=== PATIENT | female | born 1940 | race Caucasian/White ===

== ENCOUNTER 2016-04-11 03:29 | Emergency (ER) | payer MEDICARE, BC ==
--- NOTE | 2016-04-11 03:40 | ED ---
General Adult HPI - General Stated complaint: altered mental Time Seen by Provider: 04/11/16 03:30 Source: RN notes reviewed, old records reviewed - History of Present Illness Initial comments: This is a 75-year-old female here for evaluation of altered mental status. Patient just prior [facility] after prolonged hospitalization secondary to hip fracture and then rehabilitation. Patient is on a blood thinners, no trauma. Patient is combative and noncooperative, history is obtained from EMS and the patient's chart. Patient is unable to give history - Related Data Home Medications Medication Instructions Recorded Confirmed Alendronate Sodium [Fosamax] 70 mg PO Q7D 02/26/16 02/26/16 Fish Oil/Dha/Epa [Fish Oil 1,200 1 cap PO DAILY 02/26/16 02/26/16 mg Fish Oil] Levothyroxine Sodium [Synthroid] 100 mcg PO DAILY 02/26/16 02/26/16 Red Yeast Rice 600 mg PO DAILY 02/26/16 02/26/16 Previous Rx's Medication Instructions Recorded HYDROcodone/APAP 5-325MG [[place] 1 - 2 each PO Q4-6H PRN #90 tab 02/28/16 5-325] Sennosides-Docusate Sodium 1 tab PO BID #60 tablet 02/28/16 [Senokot-S] Warfarin [Coumadin] 2.5 mg PO DAILY #30 tab 02/28/16 Aspirin EC [Ecotrin Low Dose] 81 mg PO DAILY #30 tablet. 02/29/16 Ciprofloxacin HCl [Cipro] 250 mg PO Q12HR #10 tablet 02/29/16 Allergies Allergy/AdvReac Type Severity Reaction Status Date / Time No Known Allergies Allergy Verified 04/11/16 03:42 Review of Systems ROS Statement: Those systems with pertinent positive or pertinent negative responses have been documented in the HPI. ROS Other: All systems not noted in ROS Statement are negative. Past Medical History Past Medical History: Thyroid Disorder Additional Past Medical History / Comment(s): scoliosis History of Any Multi-Drug Resistant Organisms: None Reported Additional Past Surgical History / Comment(s): thyroid surgery Past Psychological History: No Psychological Hx Reported Smoking Status: Former smoker Past Alcohol Use History: None Reported, Rare Past Drug Use History: None Reported - Past Family History Mother Additional Family Medical History / Comment(s): do gehrig's disease Father Family Medical History: Cancer General Exam Limitations: altered mental status, physical limitation General appearance: alert, in distress Head exam: Present: atraumatic, normocephalic, normal inspection Eye exam: Present: normal appearance, PERRL, EOMI. Absent: scleral icterus, conjunctival injection, periorbital swelling ENT exam: Present: normal exam, mucous membranes moist Neck exam: Present: normal inspection. Absent: tenderness, meningismus, lymphadenopathy Respiratory exam: Present: normal lung sounds bilaterally. Absent: respiratory distress, wheezes, rales, rhonchi, stridor Cardiovascular Exam: Present: regular rate, normal rhythm, normal heart sounds. Absent: systolic murmur, diastolic murmur, rubs, gallop, clicks GI/Abdominal exam: Present: soft, normal bowel sounds. Absent: distended, tenderness, guarding, rebound, rigid Extremities exam: Present: normal inspection, full ROM, normal capillary refill. Absent: tenderness, pedal edema, joint swelling, calf tenderness Back exam: Present: normal inspection Neurological exam: Present: alert, oriented X3, CN II-XII intact Psychiatric exam: Present: normal affect, normal mood Skin exam: Present: warm, dry, intact, normal color. Absent: rash Course Vital Signs 04/11/16 04/11/16 03:33 04:30 Temperature 97.6 F Pulse Rate 94 95 Respiratory 18 18 Rate Blood Pressure 175/104 156/98 O2 Sat by Pulse 98 96 Oximetry - Reevaluation(s) Reevaluation #1: 04/11/16 03:40 Medical record from prior is reviewed Reevaluation #2: 04/11/16 05:31 Per patient's , patient up and feeling well for 2-3 days and episodes of episodic headaches and being forgetful. They did stop at family care earlier today and were told to follow-up on Thursday Reevaluation #3: 04/11/16 05:32 Patient is doing better with sedation, able to be sedated for CAT scan EKG Findings - EKG Comments: EKG Findings:: EKG shows normal sinus rhythm rate of 90, SD 16, QRS 80, QTC 459 Medical Decision Making - Medical Decision Making 21 for female here for evaluation of altered mental status, 2-3 days well for mental status forgetfulness yesterday occasional headache and worsening today, patient is not on blood thinners, patient is found to have intracerebral hemorrhage, no midline shift, patient will be transferred to [facility] for surgical evaluation - Lab Data Result diagrams: 04/11/16 04:15 04/11/16 04:15 Lab Results 04/11/16 04/11/16 04/11/16 Range/Units 04:03 04:05 04:15 WBC (3.8-10.6) k/uL RBC (3.80-5.40) m/uL Hgb (11.4-16.0) gm/dL Hct (34.0-46.0) % MCV (80.0-100.0) fL MCH (25.0-35.0) pg MCHC (31.0-37.0) g/dL RDW (11.5-15.5) % Plt Count (150-450) k/uL Neutrophils % % Lymphocytes % % Monocytes % % Eosinophils % % Basophils % % Neutrophils # (1.3-7.7) k/uL Lymphocytes # (1.0-4.8) k/uL Monocytes # (0-1.0) k/uL Eosinophils # (0-0.7) k/uL Basophils # (0-0.2) k/uL PT (9.0-12.0) sec INR (<1.1) APTT (22.0-30.0) sec Sodium (137-145) mmol/L Potassium (3.5-5.1) mmol/L Chloride (98-107) mmol/L Carbon Dioxide (22-30) mmol/L Anion Gap mmol/L BUN (7-17) mg/dL Creatinine (0.52-1.04) mg/dL Est GFR (MDRD) Af Amer (>60 ml/min/1.73 sqM) Est GFR (MDRD) Non-Af (>60 ml/min/1.73 sqM) Glucose (74-99) mg/dL POC Glucose (mg/dL) 107 H (75-99) mg/dL POC Glu Coverage Analyst [place] Calcium (8.4-10.2) mg/dL Phosphorus (2.5-4.5) mg/dL Magnesium (1.6-2.3) mg/dL Total Bilirubin (0.2-1.3) mg/dL AST (14-36) U/L ALT (9-52) U/L Alkaline Phosphatase (38-126) U/L Total Creatine Kinase 68 (30-135) U/L Total Protein (6.3-8.2) g/dL Albumin (3.5-5.0) g/dL Urine Color Yellow Urine Appearance Clear (Clear) Urine pH 7.0 (5.0-8.0) Ur Specific [place] 1.007 (1.001-1.035) Urine Protein Negative (Negative) Urine Glucose (UA) Negative (Negative) Urine Ketones Negative (Negative) Urine Blood Negative (Negative) Urine Nitrate Negative (Negative) Urine Bilirubin Negative (Negative) Urine Urobilinogen <2.0 (<2.0) mg/dL Ur Leukocyte Esterase Negative (Negative) 04/11/16 04/11/16 04/11/16 Range/Units 04:15 04:15 04:15 WBC 12.6 H (3.8-10.6) k/uL RBC 4.62 (3.80-5.40) m/uL Hgb 12.7 (11.4-16.0) gm/dL Hct 39.9 (34.0-46.0) % MCV 86.5 (80.0-100.0) fL MCH 27.4 (25.0-35.0) pg MCHC 31.7 (31.0-37.0) g/dL RDW 15.6 H (11.5-15.5) % Plt Count 267 (150-450) k/uL Neutrophils % 84 % Lymphocytes % 8 % Monocytes % 5 % Eosinophils % 2 % Basophils % 1 % Neutrophils # 10.5 H (1.3-7.7) k/uL Lymphocytes # 1.0 (1.0-4.8) k/uL Monocytes # 0.6 (0-1.0) k/uL Eosinophils # 0.2 (0-0.7) k/uL Basophils # 0.1 (0-0.2) k/uL PT 10.5 (9.0-12.0) sec INR 1.0 (<1.1) APTT 21.1 L (22.0-30.0) sec Sodium 145 (137-145) mmol/L Potassium 4.6 (3.5-5.1) mmol/L Chloride 108 H (98-107) mmol/L Carbon Dioxide 27 (22-30) mmol/L Anion Gap 10 mmol/L BUN 25 H (7-17) mg/dL Creatinine 1.50 H (0.52-1.04) mg/dL Est GFR (MDRD) Af Amer 41 (>60 ml/min/1.73 sqM) Est GFR (MDRD) Non-Af 34 (>60 ml/min/1.73 sqM) Glucose 92 (74-99) mg/dL POC Glucose (mg/dL) (75-99) mg/dL POC Glu Coverage Analyst ID Calcium 9.4 (8.4-10.2) mg/dL Phosphorus 3.6 (2.5-4.5) mg/dL Magnesium 2.0 (1.6-2.3) mg/dL Total Bilirubin 0.4 (0.2-1.3) mg/dL AST 22 (14-36) U/L ALT 28 (9-52) U/L Alkaline Phosphatase 77 (38-126) U/L Total Creatine Kinase (30-135) U/L Total Protein 6.9 (6.3-8.2) g/dL Albumin 3.8 (3.5-5.0) g/dL Urine Color Urine Appearance (Clear) Urine pH (5.0-8.0) Ur Specific [place] (1.001-1.035) Urine Protein (Negative) Urine Glucose (UA) (Negative) Urine Ketones (Negative) Urine Blood (Negative) Urine Nitrate (Negative) Urine Bilirubin (Negative) Urine Urobilinogen (<2.0) mg/dL Ur Leukocyte Esterase (Negative) - Radiology Data Radiology results: report reviewed (CT brain is positive for intracerebral hemorrhage), image reviewed Disposition Clinical Impression: Altered mental status, Hemorrhage of left temporal lobe Disposition: OTHER INSTITUTION NOT DEFINED Condition: Critical Referrals: Macey Banerjee MD [Primary Care Provider] - 1-2 days - Out of Hospital Transfer - Req. Specs Out of Hospital Transfer - Requested Specifics: Other Emergency Center ([facility])
[2016-04-11] MEDS ORDERED: SODIUM CHLORIDE 0.9% 500 ML IV STA (03:41)
[2016-04-11] MEDS ORDERED: SODIUM CHLORIDE 0.9% 1,000 ML IV STA ×2 (03:41→05:46)
[2016-04-11 04:04] LABS: Glucose,Whole Blood 107 mg/dL (75-99)
[2016-04-11 04:18] LABS: Appearance,Urine Clear (Clear); Bilirubin,Urine Negative (Negative); Glucose,Urine (UA) Negative (Negative); Ketones,Urine Negative (Negative); Leukocyte Esterase,Urine Negative (Negative); Nitrite,Urine Negative (Negative); Protein,Urine Negative (Negative); Specific Gravity,Urine 1.007 (1.001-1.035); UA Billing (MACRO vs. MICRO) CHEM; Urobilinogen,Urine <2.0 mg/dL (<2.0)
[2016-04-11 04:27] LABS: Basophils # (A) 0.1 k/uL (0-0.2); Basophils % (A) 1 %; CH 27.1; CHCM 31.5; Eosinophils # (A) 0.2 k/uL (0-0.7); Eosinophils % (A) 2 %; HCT 39.9 % (34.0-46.0); HGB 12.7 gm/dL (11.4-16.0); Luc # (Auto) 0.14; Luc % (Auto) 1; Lymphocytes % (A) 8 %; MCH 27.4 pg (25.0-35.0); MCHC 31.7 g/dL (31.0-37.0); MCV 86.5 fL (80.0-100.0); Mean Platelet Volume 7.1; Monocytes # (A) 0.6 k/uL (0-1.0); Monocytes % (A) 5 %; Neutrophils # (A) 10.5 k/uL (1.3-7.7); Neutrophils % (A) 84 %; RBC 4.62 m/uL (3.80-5.40); RDW 15.6 % (11.5-15.5); WBC 12.6 k/uL (3.8-10.6); WBC (Perox) 13.63
[2016-04-11] MEDS ORDERED: LORazepam 2 MG/ML SYRINGE IV STA (04:28)
[2016-04-11 04:44] LABS: Calcium 9.4 mg/dL (8.4-10.2); Phosphorous 3.6 mg/dL (2.5-4.5); Potassium 4.6 mmol/L (3.5-5.1); Prothrombin Time 10.5 sec (9.0-12.0); Total Bilirubin 0.4 mg/dL (0.2-1.3); Total Protein 6.9 g/dL (6.3-8.2)
[2016-04-11 04:49] LABS: Creatine Kinase 68 U/L (30-135)
[2016-04-11 05:02] LABS: Creatine Kinase MB 1.2 ng/mL (0.0-2.4); Troponin I <0.012 ng/mL (0.000-0.034)
[2016-04-11 05:07] LABS: Partial Thromboplastin Time 21.1 sec (22.0-30.0)
--- NOTE | 2016-04-11 05:17 | CT ---
EXAMINATION TYPE: CT brain wo con DATE OF EXAM: 04/11/2016 5:12 AM COMPARISON: NONE HISTORY: AMS CT DLP: 1133.30 mGycm Automated exposure control for dose reduction was used. FINDINGS: There is diffuse cerebral cortical atrophy. There is a 3 x 3 cm area of high attenuation in the right temporal lobe consistent with acute hemorrhage. There is no mass effect nor midline shift. There is enlargement of the ventricles. 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 Acute right temporal lobe parenchymal hemorrhage.
--- NOTE | 2016-04-11 05:25 | XR ---
EXAMINATION TYPE: XR chest 1V DATE OF EXAM: 04/11/2016 4:34 AM COMPARISON: 02/25/2016 HISTORY: Altered mental status. Weakness. TECHNIQUE: Single frontal view of the chest is obtained. FINDINGS: There is no heart failure nor confluent pneumonic infiltrate. There are no hilar masses. T horacic aorta is atheromatous. There are chest leads. Costophrenic angles are clear. IMPRESSION: No active cardiopulmonary disease. Normal heart. Atheromatous aorta. No change.
[2016-04-11] MEDS ORDERED: LABETALOL SYRINGE 5 MG/ML IVP STA (05:34)
[2016-04-11 05:50] VITALS: RESP 16
[2016-04-11 06:01] VITALS: BP 155/84; PULSE 64; TEMP 98
== END 2016-04-11 06:03 | disposition short-term general hospital (02) ==
LOC: EC 03:29 → SUPCPDRO 03:29 → EC 06:03
DX: I61.9 Nontraumatic intracerebral hemorrhage, unspecified (principal); G31.89 Other specified degenerative diseases of nervous system; E07.9 Disorder of thyroid, unspecified; Z79.899 Other long term (current) drug therapy; Z79.82 Long term (current) use of aspirin; Z79.01 Long term (current) use of anticoagulants; Z87.891 Personal history of nicotine dependence
CPT/HCPCS: 99285 ×2; 96374 ×2; 96375 ×2; 96361 ×2; 36415; 93005; 80053; 82550; 82553; 83735; 84100; 84484; 85025; 85610; 85730; 81003; 87086; 71010; 70450; J2060

== ENCOUNTER 2016-04-16 22:03 | Emergency (ER) | payer MEDICARE, BC ==
[2016-04-16 22:14] VITALS: RESP 18
[2016-04-16] MEDS ORDERED: LORazepam 2 MG/ML SYRINGE IM STA (22:15)
[2016-04-16] MEDS ORDERED: ZIPRASIDONE 20 MG VIAL IM STA (22:15)
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
[2016-04-16 22:37] LABS: Basophils # (A) 0.1 k/uL (0-0.2); Basophils % (A) 0 %; CH 27.3; CHCM 31.8; Eosinophils # (A) 0.3 k/uL (0-0.7); Eosinophils % (A) 3 %; HCT 40.6 % (34.0-46.0); HGB 12.6 gm/dL (11.4-16.0); Luc # (Auto) 0.22; Luc % (Auto) 2; Lymphocytes # (A) 1.2 k/uL (1.0-4.8); Lymphocytes % (A) 10 %; MCH 26.9 pg (25.0-35.0); MCHC 31.2 g/dL (31.0-37.0); MCV 86.2 fL (80.0-100.0); Mean Platelet Volume 7.2; Monocytes # (A) 0.6 k/uL (0-1.0); Monocytes % (A) 5 %; Neutrophils # (A) 10.3 k/uL (1.3-7.7); Neutrophils % (A) 81 %; RBC 4.71 m/uL (3.80-5.40); RDW 15.4 % (11.5-15.5); WBC 12.7 k/uL (3.8-10.6); WBC (Perox) 12.87
[2016-04-16 22:44] LABS: Calcium 9.7 mg/dL (8.4-10.2); Potassium 4.6 mmol/L (3.5-5.1); Total Bilirubin 0.4 mg/dL (0.2-1.3); Total Protein 7.3 g/dL (6.3-8.2)
[2016-04-16] MEDS ORDERED: SODIUM CHLORIDE 0.9% 500 ML IV STA (23:18)
[2016-04-17 00:06] LABS: Appearance,Urine Clear (Clear); Bilirubin,Urine Negative (Negative); Glucose,Urine (UA) Negative (Negative); Ketones,Urine Negative (Negative); Leukocyte Esterase,Urine Negative (Negative); Nitrite,Urine Negative (Negative); PH, Urine 6.5 (5.0-8.0); Protein,Urine Negative (Negative); Specific Gravity,Urine 1.009 (1.001-1.035); UA Billing (MACRO vs. MICRO) CHEM; Urobilinogen,Urine <2.0 mg/dL (<2.0)
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
--- NOTE | 2016-04-17 00:31 | XR ---
EXAMINATION TYPE: XR chest 1V portable DATE OF EXAM: 04/17/2016 12:16 AM COMPARISON: 04/11/2016 HISTORY: History of fall and pain TECHNIQUE: Single frontal view of the chest is obtained. FINDINGS: Chronic lung changes are suggested bilaterally. There is no focal air space opacity, pleural effusion, or pneumothorax seen. Borderline enlarged hear t is noted. Atherosclerotic calcification is noted in the aortic arch. The osseous structures are i ntact. IMPRESSION: 1. Chronic lung changes. 2. No significant active lung infiltrates. 3. No significant change.
[2016-04-17 01:55] VITALS: BP 185/75; PULSE 80; TEMP 98
== END 2016-04-17 01:55 | disposition home or self-care (01) ==
LOC: EC 22:03
DX: E86.0 Dehydration (principal); S80.212A Abrasion, left knee, initial encounter; S80.211A Abrasion, right knee, initial encounter; W06.XXXA Fall from bed, initial encounter; Y92.122 Bedroom in nursing home as the place of occurrence of the external cause; R41.82 Altered mental status, unspecified; R45.1 Restlessness and agitation; Z86.79 Personal history of other diseases of the circulatory system; E07.9 Disorder of thyroid, unspecified; Z87.891 Personal history of nicotine dependence; Z79.899 Other long term (current) drug therapy; Z79.01 Long term (current) use of anticoagulants; Z79.82 Long term (current) use of aspirin
CPT/HCPCS: 36415; 93005; 80053; 82140; 82550; 82553; 83735; 85025; 81003; 71010; 72125; 70450; 99285; 96372; 96361; 96360; J2060; J3486

== ENCOUNTER 2016-04-23 23:09 | Inpatient (IN) | payer MEDICARE, BC ==
[2016-04-23 23:41] LABS: Basophils # (A) 0.1 k/uL (0-0.2); Basophils % (A) 1 %; CH 27.8; CHCM 32.4; Eosinophils # (A) 0.5 k/uL (0-0.7); Eosinophils % (A) 4 %; HCT 33.8 % (34.0-46.0); HGB 10.6 gm/dL (11.4-16.0); Luc # (Auto) 0.19; Luc % (Auto) 2; Lymphocytes # (A) 1.6 k/uL (1.0-4.8); Lymphocytes % (A) 14 %; MCHC 31.4 g/dL (31.0-37.0); MCV 86.1 fL (80.0-100.0); Mean Platelet Volume 7.8; Monocytes # (A) 0.7 k/uL (0-1.0); Monocytes % (A) 6 %; Neutrophils # (A) 8.2 k/uL (1.3-7.7); Neutrophils % (A) 73 %; RBC 3.92 m/uL (3.80-5.40); RDW 14.9 % (11.5-15.5); WBC 11.2 k/uL (3.8-10.6); WBC (Perox) 11.51
[2016-04-23 23:50] LABS: Partial Thromboplastin Time 24.2 sec (22.0-30.0); Prothrombin Time 10.5 sec (9.0-12.0)
[2016-04-23 23:51] LABS: Calcium 8.9 mg/dL (8.4-10.2); Potassium 4.3 mmol/L (3.5-5.1); Total Bilirubin 0.5 mg/dL (0.2-1.3); Total Protein 6.5 g/dL (6.3-8.2)
--- NOTE | 2016-04-24 00:09 | ED ---
Fall HPI - General Chief Complaint: Fall Stated Complaint: Fall Time Seen by Provider: 04/23/16 23:12 Source: patient Mode of arrival: EMS - History of Present Illness Initial Comments: This is a 75-year-old female who presents for medical on for a fall. The patient has a history of multiple falls in the past. She has been emergency department multiple times for evaluation of these falls. Tonight she was sitting in her wheelchair and wheelchair flipped backwards and she hit her head on a metal heater. She was awake and alert afterwards and the nurse was evaluating her and keep an eye on her. Her mental status did not change. She was little bit agitated and they gave her 0.5 Ativan 2. The family member showed up and stated that he wanted her evaluated in the ER from her fall. The patient currently denies any pain. She is currently comfortable. No complaints with the patient. - Related Data Home Medications Medication Instructions Recorded Confirmed Acetaminophen [Tylenol] 650 mg PO Q4H PRN 04/23/16 04/23/16 Atorvastatin [Lipitor] 40 mg PO HS 04/23/16 04/23/16 Cephalexin [Keflex] 500 mg PO Q6HR 04/23/16 04/23/16 Divalproex Sodium [Depakote] 125 mg PO BID@0800,1600 04/23/16 04/23/16 HYDROcodone/APAP 5-325MG [[place] 1 tab PO Q4HR PRN 04/23/16 04/23/16 5-325] LORazepam [Ativan] 0.5 mg PO Q4H PRN 04/23/16 04/23/16 Levothyroxine Sodium [Synthroid] 75 mcg PO HS 04/23/16 04/23/16 Omeprazole 20 mg PO HS 04/23/16 04/23/16 QUEtiapine [SEROquel] 75 mg PO HS 04/23/16 04/23/16 Sennosides [Senokot] 8.6 mg PO BID 04/23/16 04/23/16 levETIRAcetam 1,000 mg PO Q12HR 04/23/16 04/23/16 Allergies Allergy/AdvReac Type Severity Reaction Status Date / Time No Known Allergies Allergy Verified 04/23/16 23:31 Review of Systems ROS Statement: Those systems with pertinent positive or pertinent negative responses have been documented in the HPI. ROS Other: All systems not noted in ROS Statement are negative. Past Medical History Past Medical History: Thyroid Disorder Additional Past Medical History / Comment(s): scoliosis, alterted mental status History of Any Multi-Drug Resistant Organisms: None Reported Additional Past Surgical History / Comment(s): thyroid surgery Past Psychological History: No Psychological Hx Reported Smoking Status: Former smoker Past Alcohol Use History: None Reported, Rare Past Drug Use History: None Reported - Past Family History Mother Additional Family Medical History / Comment(s): do gehrig's disease Father Family Medical History: Cancer General Exam - General Exam Comments Initial Comments: Constitutional: Awake alert Appears comfortable Head: Normocephalic atraumatic, no hematoma or abrasion seen Eyes: no conjunctival injection No scleral icterus EOMI, pupils are 3 mm reactive bilaterally Neck: No JVD Supple, no midline tenderness Heart: Regular rate rhythm normal S1-S2 no murmurs Lungs: Clear to auscultation bilaterally No wheezing No rales Abdomen: Soft nondistended nontender Extremities: Non edematous DP pulses intact Radial pulses intact, there is no tenderness to palpation along bilateral lower extremities, negative pain with log rolling, pelvis is stable, there are multiple abrasions to the patient's lower extremities Neuro: Patient is awake and alert and oriented 1-2 No focal neurologic deficits Psych: Appropriate mood and affect Course Vital Signs 04/23/16 04/24/16 23:16 00:15 Temperature 97.3 F L 97.7 F Pulse Rate 77 74 Respiratory 20 18 Rate Blood Pressure 169/108 186/81 O2 Sat by Pulse 93 L 97 Oximetry - Reevaluation(s) Reevaluation #1: 04/24/16 00:15 EKG showing normal sinus rhythm with a rate of 74. No ST segment changes or T- wave inversions. QTC is 463. Other intervals are normal. No ectopy. Medical Decision Making - Medical Decision Making Is a 75-year-old female presents emergency department [facility] Family is adamant that they do not want to take her back to metal lodged because she is keeps falling there and having to return emergency Department. Imaging was reviewed and does show persistent right-sided temporal hemorrhage that is improving from previous. No other acute injuries are noted. On the place her in observation for placement tomorrow and monitoring overnight. Dr. Kenney except admission. - Lab Data Result diagrams: 04/23/16 23:30 04/23/16 23:30 Lab Results 04/23/16 04/23/16 04/23/16 Range/Units 23:30 23:30 23:30 WBC 11.2 H (3.8-10.6) k/uL RBC 3.92 (3.80-5.40) m/uL Hgb 10.6 L (11.4-16.0) gm/dL Hct 33.8 L (34.0-46.0) % MCV 86.1 (80.0-100.0) fL MCH 27.0 (25.0-35.0) pg MCHC 31.4 (31.0-37.0) g/dL RDW 14.9 (11.5-15.5) % Plt Count 205 (150-450) k/uL Neutrophils % 73 % Lymphocytes % 14 % Monocytes % 6 % Eosinophils % 4 % Basophils % 1 % Neutrophils # 8.2 H (1.3-7.7) k/uL Lymphocytes # 1.6 (1.0-4.8) k/uL Monocytes # 0.7 (0-1.0) k/uL Eosinophils # 0.5 (0-0.7) k/uL Basophils # 0.1 (0-0.2) k/uL PT 10.5 (9.0-12.0) sec INR 1.0 (<1.1) APTT 24.2 (22.0-30.0) sec Sodium 137 (137-145) mmol/L Potassium 4.3 (3.5-5.1) mmol/L Chloride 100 (98-107) mmol/L Carbon Dioxide 28 (22-30) mmol/L Anion Gap 9 mmol/L BUN 16 (7-17) mg/dL Creatinine 1.09 H (0.52-1.04) mg/dL Est GFR (MDRD) Af Amer 59 (>60 ml/min/1.73 sqM) Est GFR (MDRD) Non-Af 49 (>60 ml/min/1.73 sqM) Glucose 101 H (74-99) mg/dL Calcium 8.9 (8.4-10.2) mg/dL Total Bilirubin 0.5 (0.2-1.3) mg/dL AST 27 (14-36) U/L ALT 31 (9-52) U/L Alkaline Phosphatase 81 (38-126) U/L Total Protein 6.5 (6.3-8.2) g/dL Albumin 3.3 L (3.5-5.0) g/dL Disposition Clinical Impression: Multiple falls, Intracranial hemorrhage Disposition: ADMITTED IP TO THIS [facility] Condition: Stable
--- NOTE | 2016-04-24 00:43 | XR ---
EXAM: XR Chest, 1 View. CLINICAL HISTORY: Reason: Pain TECHNIQUE: Frontal view of the chest. COMPARISON: 04/11/16. FINDINGS: Lungs: Low lung volumes accentuate pulmonary markings. Slight increased retrocardiac opacity may reflect worsening infiltrate or atelectasis. Prominent lung markings likely due to low lung volume. Pleural space: Unremarkable. No pneumothorax. Heart: Cardiovascular silhouette is mildly enlarged and accentuated by low lung volume, unchanged. Mediastinum: Unremarkable. Bones/joints: Degenerative changes in the thoracic spine. Vasculature: Tortuous calcified thoracic aorta is again seen. IMPRESSION: Low lung volume. Worsening left basilar infiltrate versus atelectasis.
--- NOTE | 2016-04-24 00:45 | XR ---
EXAM: XR Pelvis, 1 or 2 Views. CLINICAL HISTORY: Reason: Pain TECHNIQUE: Frontal view of the pelvis. COMPARISON: No relevant prior studies available. FINDINGS: Bones/joints: Left hip hemiarthroplasty is noted. The entire prosthesis is not included on this frontal view. No dislocation on this single frontal view. Diffuse demineralization of the bones. Degenerative changes in the visualized lumbar spine with scoliosis. No acute fracture. Soft tissues: Calcifications in the pelvis likely phleboliths. Gastrointestinal tract: Moderate retained stool in the visualized large bowel loops. IMPRESSION: No definite acute bony abnormality on this single frontal view. Status post left hip arthroplasty. Osteopenia.
[2016-04-24] MEDS ORDERED: NALOXONE 0.4 MG/ML 1 ML VIAL IV PRN (01:00)
--- NOTE | 2016-04-24 01:09 | CT ---
EXAM: CT Head Without Intravenous Contrast. CLINICAL HISTORY: Reason: Pain TECHNIQUE: Axial computed tomography images of the head/brain without intravenous contrast. CTDI is 60.3 mGy and DLP is 1180 MGy-cm COMPARISON: 04/16/16 FINDINGS: Brain: Interval decrease in hematoma in the right temporal lobe. Current measurement is approximately 2 x 1.3 cm. previous measurement was approximately 3 cm in the greatest diameter. There is surrounding edema and mass effect. Extensive periventricular low densities are identified. No significant white matter disease. Ventricles: No midline shift or hydrocephalus is seen. There is diffuse atrophy with compensatory dilatation of the lateral ventricles. Prominence of the lateral ventricles as previously noted. Possible mild communicating hydrocephalus. Bones/joints: Unremarkable. No acute fracture. Soft tissues: Unremarkable. Sinuses: Unremarkable as visualized. No acute sinusitis. Mastoid air cells: Unremarkable as visualized. No mastoid effusion. Other findings: Previously seen small left frontal hematoma, no longer visualized. IMPRESSION: Interval decrease in right temporal hemorrhage/hematoma with surrounding edema. Diffuse atrophy and extensive small vessel ischemic change. EXAM: CT Cervical Spine Without Intravenous Contrast. CLINICAL HISTORY: Reason: Pain TECHNIQUE: Axial computed tomography images of the cervical spine without intravenous contrast. CTDI is 13.5 mGy and DLP is 275 mGy-cm COMPARISON: 04/16/16 FINDINGS: Vertebrae: There is normal alignment of the cervical spine. Vertebral body heights are maintained. Degenerative endplate changes are seen at multiple levels, most pronounced at C5-6 and C6-7. Again noted is slight posterior displacement of C5 with respect to C6. No acute fracture. Soft tissues: Unremarkable. Vasculature: Calcified carotid arteries again noted. Lung apices: Biapical scarring and emphysematous changes. DISCS/SPINAL CANAL/NEURAL FORAMINA: C2-C3: Mild disc osteophytic bulge. No stenosis. C3-C4: Mild central disc osteophytic bulge. No stenosis. C4-C5: Mild to moderate discussed if it bulge. No stenosis. C5-C6: Narrowing of the disc space. Moderate discussed if it bulge extending into the neural foramina bilaterally, more pronounced towards the right. Facet arthropathy identified. These findings contribute to mild spinal stenosis. Moderate to severe bilateral neural foraminal narrowing. C6-C7: Moderate disc osteophytic bulge, more pronounced towards the right. Mild spinal stenosis is suspected. Moderate to severe bilateral neural foraminal narrowing. C7-T1: no significant disc bulge. No stenosis. IMPRESSION: Multilevel degenerative disc disease as described. No compression deformity. Diffuse osteopenia.
[2016-04-24] MEDS: CEPHALEXIN 500 MG CAP PO SCH ×4 (06:14→23:49)
[2016-04-24 06:54] LABS: Appearance,Urine Clear (Clear); Bilirubin,Urine Negative (Negative); Glucose,Urine (UA) Negative (Negative); Ketones,Urine Negative (Negative); Leukocyte Esterase,Urine Negative (Negative); Nitrite,Urine Negative (Negative); PH, Urine 7.5 (5.0-8.0); Protein,Urine Negative (Negative); Specific Gravity,Urine 1.006 (1.001-1.035); UA Billing (MACRO vs. MICRO) CHEM; Urobilinogen,Urine <2.0 mg/dL (<2.0)
[2016-04-24] MEDS: levETIRAcetam 500 MG TAB PO SCH ×2 (07:47→23:28)
[2016-04-24] MEDS: DIVALPROEX SPRINKLE 125 MG CAP.SPRINK PO SCH ×3 (07:48→18:04)
[2016-04-24] MEDS: LORazepam 2 MG/ML SYRINGE IV PRN ×2 (08:59→15:28)
[2016-04-24] MEDS ORDERED: ACETAMINOPHEN TAB 325 MG TAB PO PRN (12:24)
--- NOTE | 2016-04-24 12:42 | P.HPIM ---
History of Present Illness H&P Date: 04/24/16 Chief Complaint: Fall This is a 75-year-old female, patient of Dr. Banerjee. She has a known past medical history of hypothyroidism, chronic kidney disease and intracranial brain bleed. Patient has a history of multiple falls in the past. She was transferred earlier in April [facility] for intracranial brain bleed. She had currently been residing at [facility] for rehabilitation. Please note that I'm unable to obtain history from patient. History was obtained from nursing staff and chart. It appears the patient was sitting in her wheelchair in the wheelchair flipped backwards she had her head on the metal heater. She was awake and alert afterwards and the nurse evaluating her and it had reported that there is no change in her mental status. However she was agitated IV did give her some Ativan. Family member showed up and wanted her to be evaluated in the emergency room for her fall. Therefore patient was brought into the emergency room. She's been admitted to the observation floor. Patient did receive Ativan this morning she was agitated trying to crawl out of bed and is very confused. Upon my examination patient is unable to answer questions she is awake. She is lying in bed side only. She is able to follow a few simple commands. Review of Systems Unable to obtain complete review of systems. Patient not answering questions. Past Medical History Past Medical History: Dementia, Thyroid Disorder Additional Past Medical History / Comment(s): scoliosis, alterted mental status , multiple falls with injury, hemorrhage right temporal lobe History of Any Multi-Drug Resistant Organisms: None Reported Past Surgical History: Orthopedic Surgery Additional Past Surgical History / Comment(s): thyroid surgery, closed left hip [id number] Past Anesthesia/Blood Transfusion Reactions: No Reported Reaction Past Psychological History: Unable to Obtain Smoking Status: Former smoker Past Alcohol Use History: None Reported, Rare Past Drug Use History: None Reported - Past Family History Mother Family Medical History: AFIB Additional Family Medical History / Comment(s): do gehrig's disease Father Family Medical History: Cancer Medications and Allergies Home Medications Medication Instructions Recorded Confirmed Type Acetaminophen [Tylenol] 650 mg PO Q4H PRN 04/23/16 04/24/16 History Atorvastatin [Lipitor] 40 mg PO HS 04/23/16 04/24/16 History Cephalexin [Keflex] 500 mg PO Q6HR 04/23/16 04/24/16 History Divalproex Sodium [Depakote] 125 mg PO BID@0800,1600 04/23/16 04/24/16 History HYDROcodone/APAP 5-325MG [[place] 1 tab PO Q4HR PRN 04/23/16 04/24/16 History 5-325] LORazepam [Ativan] 0.5 mg PO Q4H PRN 04/23/16 04/24/16 History Levothyroxine Sodium [Synthroid] 75 mcg PO HS 04/23/16 04/24/16 History Omeprazole 20 mg PO HS 04/23/16 04/24/16 History QUEtiapine [SEROquel] 75 mg PO HS 04/23/16 04/24/16 History Sennosides [Senokot] 8.6 mg PO BID 04/23/16 04/24/16 History levETIRAcetam 1,000 mg PO Q12HR 04/23/16 04/24/16 History Allergies Allergy/AdvReac Type Severity Reaction Status Date / Time No Known Allergies Allergy Verified 04/24/16 02:11 Physical Exam Vitals: Vital Signs Temp Pulse Pulse Resp BP BP Pulse Ox 04/24/16 07:33 97.4 F L 74 18 145/87 94 L 04/24/16 06:50 76 18 04/24/16 04:00 97.9 F 76 18 172/96 96 04/24/16 02:49 18 04/24/16 01:27 97.5 F L 71 18 153/86 95 Intake and Output 04/23/16 04/24/16 04/24/16 22:59 06:59 14:59 Intake Total 50 Output Total 300 Balance -250 Intake: Oral 50 Output: Urine 300 Other: Voiding Method Diaper Toilet Diaper Incontinent # Voids 1 Weight 51 kg Head normocephalic Neck supple Lungs diminished bilaterally. No wheezing or crackles. Heart regular rate and rhythm S1-S2, no rub or gallop Abdomen is soft nontender nondistended positive bowel sounds no hepatosplenomegaly Extremities no edema Neuro patient is awake. Not answering questions. She just received Ativan. However she is able to follow simple commands. Hand planning management it specialist is equal bilaterally. Lower extremity strength equal bilaterally but weak. Probably about a 3 out of 5. Skin: Patient has multiple scabbing and lacerations over her legs and arms. Left elbow swollen red and warm to touch. With possibly a pressure ulceration no evidence of drainage. Results CBC & Chem 7: 04/23/16 23:30 04/23/16 23:30 Labs: Microbiology - Last 24 Hours (Table) 04/24/16 06:30 Urine Culture - Preliminary Urine,Clean Catch Thrombosis Risk Factor Assmnt - Choose All That Apply Each Risk Factor Represents 2 Points: Age 61-74 years, Patient confined to bed Thrombosis Risk Factor Assessment Total Risk Factor Score: 4 Thrombosis Risk Factor Assessment Level: Moderate Risk Assessment and Plan Plan: 1. Multiple falls: With computed tomography scan of the brain showing interval decrease in the right temporal hemorrhage/hematoma with surrounding edema. Also diffuse atrophy and extensive small vessel ischemic change. She had a computed tomography scan of the cervical spine multilevel degenerative disc disease no further compression deformity. Consult physical therapy. Continue with pain medications. Urinalysis negative. Chest x-ray does show worsening left infiltrate versus atelectasis. Patient has not been coughing. Incentive spirometer ordered. 2. Left elbow swelling with stage II ulceration and possible bursitis. Check left elbow x-ray. Continue Keflex 3. Multiple leg and arm lacerations with scabbing. Continue with Keflex. 4. History of right temporal hemorrhage earlier in April requiring a transfer to [facility]. Patient was also started on seizure medications for prevention of seizures. Per family there have been no active seizures. 5. Hypothyroidism resume Synthroid 6. Leukocytosis: Repeat labs in a.m. Possibly related to atelectasis as well as her multiple skin wounds 7. Altered mental status changes: Exact etiology unclear. Possibly related to her fall. Continue to monitor. Continue Ativan as needed for agitation. Continue neuro checks GI prophylaxis Pepcid and DVT prophylaxis SCDs Time with Patient: Greater than 30 (Greater than 50% of the total time spent in counseling and coordination of care.I performed an examination of the patient and discussed their management with the physician C Iron Worker. I have reviewed the Physician C Iron Worker's notes and agree with the documented findings and plan of care)
--- NOTE | 2016-04-24 13:12 | XR ---
EXAMINATION TYPE: XR elbow complete LT DATE OF EXAM: 04/24/2016 1:06 PM CLINICAL HISTORY: Left elbow pain after injury TECHNIQUE: Frontal, lateral and oblique images of the left elbow are obtained. COMPARISON: None FINDINGS: There is no acute fracture/dislocation evident in the left elbow. No abnormal fat pad sig ns are seen. There is spurring from the medial epicondyle of the distal humerus. Well-corticated frag mentation from lateral epicondyles could reflect fractured osteophyte or product of remote trauma. Th ere is mild to moderate soft tissue swelling over the olecranon with some lucency suggesting lacerati on.. Clinical correlation advised. IMPRESSION: There is no acute fracture or dislocation in the left elbow. Other findings as noted abo ve.
[2016-04-24 14:25] VITALS: BMI 21.2
[2016-04-24] MEDS ORDERED: DEXAMETHASONE SOD PHOSPHATE 10 MG/ML 1 ML VIAL IV STA (15:46)
--- NOTE | 2016-04-24 16:26 | P.CNNES ---
History of Present Illness Consult date: 04/24/16 Requesting physician: Kay Kenney Reason for Consult: Mental Status changes History of Present Illness: Patient is a 75-year-old female who is being evaluated on 04/24/2016 by the neurology service per the request of Dr. Kenney for altered mental status. Patient has a past medical history of chronic kidney disease, hypothyroidism, and recent intracranial brain bleed. Patient was fully functional and care of herself prior to [place]. According to family at [place] time she had fallen and injured her hip and underwent hip arthroplasty and was transferred to rehab following. Patient had multiple falls in rehab including a recent fall which resulted in a right temporal hematoma. Patient was placed on Keppra 1000 mg twice a day and Depakote 125 mg twice a day for prophylactic seizure precautions. History is obtained from nursing staff and chart. Due to multiple falls, family requested patient be brought to the emergency room for further evaluation. Computed tomography scan upon admission did show interval decrease in the right temporal hemorrhage/ hematoma with surrounding edema and mass effect. No midline shift or hydrocephalus is seen. Labs on admission include hemoglobin 10.6, hematocrit 33.8, sodium 137, potassium 4.3. UA is negative and urine culture is pending. Due to patient's history of multiple falls, she does have multiple abrasions including left elbow stage II ulceration. Patient has been placed on Keflex for this. At the time of my evaluation, patient is resting comfortably in bed and appears to be in no acute distress. Upon awaking patient for my exam, patient became very agitated and combative. Review of Systems REVIEW OF SYSTEMS: Otherwise unremarkable and noncontributory. Past Medical History Past Medical History: Dementia, Thyroid Disorder Additional Past Medical History / Comment(s): scoliosis, alterted mental status , multiple falls with injury, hemorrhage right temporal lobe History of Any Multi-Drug Resistant Organisms: None Reported Past Surgical History: Orthopedic Surgery Additional Past Surgical History / Comment(s): thyroid surgery, closed left hip [id number] Past Anesthesia/Blood Transfusion Reactions: No Reported Reaction Past Psychological History: Unable to Obtain Smoking Status: Former smoker Past Alcohol Use History: None Reported, Rare Past Drug Use History: None Reported - Past Family History Mother Family Medical History: AFIB Additional Family Medical History / Comment(s): do gehrig's disease Father Family Medical History: Cancer Medications and Allergies Home Medications Medication Instructions Recorded Confirmed Type Acetaminophen [Tylenol] 650 mg PO Q4H PRN 04/23/16 04/24/16 History Atorvastatin [Lipitor] 40 mg PO HS 04/23/16 04/24/16 History Cephalexin [Keflex] 500 mg PO Q6HR 04/23/16 04/24/16 History Divalproex Sodium [Depakote] 125 mg PO BID@0800,1600 04/23/16 04/24/16 History HYDROcodone/APAP 5-325MG [[place] 1 tab PO Q4HR PRN 04/23/16 04/24/16 History 5-325] LORazepam [Ativan] 0.5 mg PO Q4H PRN 04/23/16 04/24/16 History Levothyroxine Sodium [Synthroid] 75 mcg PO HS 04/23/16 04/24/16 History Omeprazole 20 mg PO HS 04/23/16 04/24/16 History QUEtiapine [SEROquel] 75 mg PO HS 04/23/16 04/24/16 History Sennosides [Senokot] 8.6 mg PO BID 04/23/16 04/24/16 History levETIRAcetam 1,000 mg PO Q12HR 04/23/16 04/24/16 History Allergies Allergy/AdvReac Type Severity Reaction Status Date / Time No Known Allergies Allergy Verified 04/24/16 02:11 Physical Examination - Vital Signs Vital Signs: Vital Signs Temp Pulse Pulse Resp BP BP Pulse Ox 04/24/16 07:33 97.4 F L 74 18 145/87 94 L 04/24/16 06:50 76 18 04/24/16 04:00 97.9 F 76 18 172/96 96 04/24/16 02:49 18 04/24/16 01:27 97.5 F L 71 18 153/86 95 Intake and Output 04/24/16 04/24/16 04/24/16 06:59 14:59 22:59 Intake Total 50 Output Total 300 Balance -250 Intake: Oral 50 Output: Urine 300 Other: Voiding Method Diaper Diaper Incontinent # Voids 1 Weight 51 kg 51 kg Patient Weight 04/25/16 06:59 Weight 51 kg PHYSICAL EXAM: GENERAL APPEARANCE: Patient is a well-developed, female who appears to be agitated and combative area did. HEENT: Normocephalic, atraumatic, no facial asymmetry is seen. Neck is supple with no masses felt. CARDIOVASCULAR: Regular rate and rhythm. ABDOMEN: Nontender, nondistended. EXTREMITIES: Show no edema or clubbing. NEUROLOGICAL EXAM: Patient awakens easily to name. Patient does not follow commands. Patient is very agitated and combative. She moves all extremities. No lateralizing weakness is noted. No obvious facial asymmetry is seen. Strength and sensory exam were unable to be obtained due to mental status. Results - Laboratory Findings CBC and BMP: 04/23/16 23:30 04/23/16 23:30 Assessment and Plan (1) Intracranial hemorrhage Status: Acute (2) Multiple falls Status: Acute (3) Abrasions of multiple sites Status: Acute (4) Altered mental status Status: Acute Plan: Recommendation: Patient's altered mental status is most likely multifactorial including medication related due to Depakote and also result of mass effect from prior left temporal hematoma. I will wean her off the Depakote slowly. I will continue Keppra for now. Due to mass effect seen on the computed tomography scan of the brain, I will start her on IV Decadron to reduce the swelling. Due to patient's confusion, safety precautions need to be in place. Continue neurological checks. I will continue to follow with you. Further recommendations to follow. Thank you for allowing me to participate in the care of your patient. Feel free to call me with any questions or concerns. I performed an examination of the patient and discussed the management with the GENERATION ENGINEER. I have reviewed the GENERATION ENGINEER notes and agree with the findings and plan of care.
[2016-04-24] MEDS ORDERED: LEVOTHYROXINE 75 MCG TAB PO SCH (21:00)
[2016-04-24] MEDS ORDERED: QUEtiapine 25 MG TAB PO SCH (21:00)
[2016-04-24] MEDS: PANTOPRAZOLE 40 MG TABLET PO SCH (22:55)
[2016-04-24] MEDS: ATORVASTATIN 40 MG TAB PO SCH (22:55)
[2016-04-24] MEDS: SENNOSIDES 8.6 MG TAB PO SCH (22:55)
[2016-04-25] MEDS: CEPHALEXIN 500 MG CAP PO SCH ×3 (05:21→17:08)
[2016-04-25] MEDS: LORazepam 2 MG/ML SYRINGE IV PRN ×3 (07:37→21:53)
[2016-04-25] MEDS ORDERED: FAMOTIDINE 20 MG TAB PO SCH (09:00)
[2016-04-25] MEDS: HYDROcodone/APAP 5-325MG 1 EACH TAB PO PRN (09:37)
[2016-04-25] MEDS: levETIRAcetam 500 MG TAB PO SCH ×2 (09:38→21:40)
[2016-04-25] MEDS: SENNOSIDES 8.6 MG TAB PO SCH ×2 (09:39→21:39)
[2016-04-25 09:49] LABS: Basophils % (A) 0 %; CH 27.1; CHCM 31.7; Eosinophils % (A) 0 %; HCT 39.3 % (34.0-46.0); HDW 2.26; HGB 12.1 gm/dL (11.4-16.0); Luc # (Auto) 0.13; Luc % (Auto) 1; Lymphocytes # (A) 1.2 k/uL (1.0-4.8); Lymphocytes % (A) 9 %; MCH 26.4 pg (25.0-35.0); MCHC 30.7 g/dL (31.0-37.0); MCV 85.9 fL (80.0-100.0); Mean Platelet Volume 7.1; Monocytes # (A) 0.6 k/uL (0-1.0); Monocytes % (A) 5 %; Neutrophils # (A) 11.5 k/uL (1.3-7.7); Neutrophils % (A) 85 %; RBC 4.58 m/uL (3.80-5.40); RDW 14.7 % (11.5-15.5); WBC 13.5 k/uL (3.8-10.6)
[2016-04-25] MEDS ORDERED: LORazepam 2 MG/ML SYRINGE IV PRN (10:02)
[2016-04-25 10:09] LABS: ALT 28 U/L (9-52); AST 26 U/L (14-36); Alkaline Phosphatase 95 U/L (38-126); Anion Gap 11 mmol/L; Blood Urea Nitrogen 16 mg/dL (7-17); Calcium 9.7 mg/dL (8.4-10.2); Carbon Dioxide 27 mmol/L (22-30); Chloride 103 mmol/L (98-107); Glucose 94 mg/dL (74-99); Non-African American GFR(MDRD) 59 (>60 ml/min/1.73 sqM); Potassium 4.7 mmol/L (3.5-5.1); Sodium 141 mmol/L (137-145); Total Bilirubin 0.5 mg/dL (0.2-1.3); Total Protein 7.1 g/dL (6.3-8.2)
[2016-04-25] MEDS: DEXAMETHASONE SOD PHOSPHATE 4 MG/ML 1 ML VIAL IV SCH ×2 (11:16→17:09)
--- NOTE | 2016-04-25 12:49 | P.PN ---
Subjective 75-year-old female presented with fall and mental status changes. She's been seen by neurology. She had a computed tomography scan of the brain showed interval decrease in the right temporal hemorrhage/hematoma with surrounding edema. They have added dexamethasone. Patient is still very confused. She's been climbing out of her bed and trying to crawl out of bed. She has required IV Ativan. Objective - Vital Signs Vital signs: Vital Signs Temp 97.8 F 04/25/16 07:00 Pulse 99 04/25/16 08:00 Resp 18 04/25/16 08:00 BP 148/99 04/25/16 07:00 Pulse Ox 94 L 04/25/16 07:00 Intake & Output 04/24/16 04/25/16 04/25/16 18:59 06:59 18:59 Intake Total 25 Balance 25 Weight 51 kg Intake: Oral 25 Other: Voiding Method Diaper Diaper Diaper Incontinent Incontinent Incontinent # Voids 1 1 - Exam Head normocephalic Neck supple Lungs clear to auscultation bilaterally no wheezing or crackles Heart regular rate and rhythm S1-S2, no rub or gallop Abdomen is soft nontender nondistended positive bowel sounds no hepatosplenomegaly Extremities no edema Neuro very confused. Laying across the bed with her legs hanging over the railing - Labs CBC & Chem 7: 04/25/16 09:01 04/25/16 09:01 Labs: Abnormal Lab Results - Last 24 Hours (Table) 04/24/16 04/25/16 Range/Units 14:44 09:01 WBC 13.5 H (3.8-10.6) k/uL MCHC 30.7 L (31.0-37.0) g/dL Neutrophils # 11.5 H (1.3-7.7) k/uL TSH 11.500 H (0.465-4.680) mIU/L Microbiology - Last 24 Hours (Table) 04/24/16 06:30 Urine Culture - Preliminary Urine,Clean Catch Assessment and Plan Plan: 1. Altered mental status changes: Evaluated by neurology. This is multifactorial possibly medication induced by the Depakote or also mass effect from the right temporal hematoma/hemorrhage. Neurology has added dexamethasone. Also they're working on weaning patient off of Depakote. Patient still having significant confusion and abdomen is being given as needed. We'll increase dose to 1 mg every 4 hours as needed. We'll await further neurology recommendations. 2. Multiple falls: With computed tomography scan of the brain showing interval decrease in the right temporal hemorrhage/hematoma with surrounding edema. Also diffuse atrophy and extensive small vessel ischemic change. She had a computed tomography scan of the cervical spine multilevel degenerative disc disease no further compression deformity. Consult physical therapy. Continue with pain medications. Urinalysis negative. Chest x-ray does show worsening left infiltrate versus atelectasis. Patient has not been coughing. Incentive spirometer ordered. 2. Left elbow swelling with stage II ulceration and possible bursitis. X-ray of elbow is negative for any fractures. Continue Keflex 3. Multiple leg and arm lacerations with scabbing. Continue with Keflex. 4. History of right temporal hemorrhage earlier in April requiring a transfer to [facility]. Patient was also started on seizure medications for prevention of seizures. Per family there have been no active seizures. 5. Hypothyroidism resume Synthroid 6. Leukocytosis: Repeat labs in a.m. Possibly related to atelectasis as well as her multiple skin wounds. White count has gone up to 13.5. And this is likely due to the steroids. Continue to monitor. GI prophylaxis Pepcid and DVT prophylaxis SCDs
[2016-04-25] MEDS ORDERED: QUEtiapine 25 MG TAB PO SCH (14:00)
[2016-04-25] MEDS: QUEtiapine 25 MG TAB PO SCH (14:22)
--- NOTE | 2016-04-25 15:26 | P.PN ---
Subjective Principal diagnosis: Patient is a pleasant 75-year-old female who is being followed by the neurology service for altered mental status. Patient has history of hip arthroplasty and was in rehab when she suffered a fall. Patient suffered a right temporal hematoma. Patient was placed on Keppra and Depakote prophylactically for seizures. Patient decreased mentation and instability may be medication related. Depakote is being weaned. Keppra is being continued for now. Computed tomography scan on admission did show a decrease in right temporal hematoma with surrounding edema and mass effect. Patient was started on IV Decadron to help decrease edema. No midline shift or hydrocephalus is seen. Patient continues to be confused and combative. At the time of my evaluation, patient is resting comfortably in bed and appears to be in no acute distress. Objective - Vital Signs Vital signs: Vital Signs Temp 97.8 F 04/25/16 07:00 Pulse 99 04/25/16 08:00 Resp 18 04/25/16 08:00 BP 148/99 04/25/16 07:00 Pulse Ox 94 L 04/25/16 07:00 Intake & Output 04/24/16 04/25/16 04/25/16 18:59 06:59 18:59 Intake Total 50 Balance 50 Weight 51 kg Intake: Oral 50 Other: Voiding Method Diaper Diaper Diaper Incontinent Incontinent Incontinent # Voids 1 1 - Exam PHYSICAL EXAM: GENERAL APPEARANCE: Patient is a well-developed, female who appears to be in no acute distress. HEENT: Normocephalic, atraumatic, no facial asymmetry is seen. Neck is supple with no masses felt. CARDIOVASCULAR: Regular rate and rhythm. ABDOMEN: Nontender, nondistended. EXTREMITIES: Show no edema or clubbing. NEUROLOGICAL EXAM: Patient is awake, alert, and oriented 2. Patient could not tell me the year. Patient is following simple commands. Speech is mildly dysarthric. Language is normal. Strength is full in all 4 extremities. Sensory exam is normal to light touch in all 4 extremities. No facial asymmetry is seen on cranial nerve testing. No tremors or seizure-like activity is seen. - Labs CBC & Chem 7: 04/25/16 09:01 04/25/16 09:01 Labs: Abnormal Lab Results - Last 24 Hours (Table) 04/24/16 04/25/16 Range/Units 14:44 09:01 WBC 13.5 H (3.8-10.6) k/uL MCHC 30.7 L (31.0-37.0) g/dL Neutrophils # 11.5 H (1.3-7.7) k/uL TSH 11.500 H (0.465-4.680) mIU/L Microbiology - Last 24 Hours (Table) 04/24/16 06:30 Urine Culture - Final Urine,Clean Catch Assessment and Plan (1) Intracranial hemorrhage Status: Acute (2) Multiple falls Status: Acute (3) Abrasions of multiple sites Status: Acute (4) Altered mental status Status: Acute Plan: Recommendation: Patient's altered mental status is most likely a medication reaction to new medications Depakote and Keppra. May also being result of mass effect from prior left temporal hematoma. Depakote is being weaned off slowly. I will continue Keppra for now. Due to mass effect seen on the computed tomography scan of the brain, I will continue IV Decadron to reduce the swelling. I will order an EEG if patient able to tolerate. Due to patient's confusion, safety precautions need to be in place. Continue neurological checks. I will continue to follow with you. Further recommendations to follow. Thank you for allowing me to participate in the care of your patient. Feel free to call me with any questions or concerns. I performed an examination of the patient and discussed the management with the VENDING MACHINE FILLER. I have reviewed the VENDING MACHINE FILLER notes and agree with the findings and plan of care.
[2016-04-25] MEDS: DIVALPROEX SPRINKLE 125 MG CAP.SPRINK PO SCH (17:08)
[2016-04-25] MEDS ORDERED: QUEtiapine 100 MG TAB PO SCH (21:00)
[2016-04-25] MEDS: ATORVASTATIN 40 MG TAB PO SCH (21:40)
[2016-04-25] MEDS: LEVOTHYROXINE 88 MCG TAB PO SCH (21:40)
[2016-04-25] MEDS: PANTOPRAZOLE 40 MG TABLET PO SCH (21:40)
[2016-04-25] MEDS ORDERED: DEXAMETHASONE SOD PHOSPHATE 4 MG/ML 1 ML VIAL IV PRN (22:00)
[2016-04-26] MEDS: DEXAMETHASONE SOD PHOSPHATE 4 MG/ML 1 ML VIAL IV SCH ×5 (00:34→23:12)
[2016-04-26] MEDS: CEPHALEXIN 500 MG CAP PO SCH ×5 (02:36→23:12)
[2016-04-26] MEDS: QUEtiapine 25 MG TAB PO SCH ×3 (06:03→20:46)
[2016-04-26 08:58] LABS: Basophils % (A) 0 %; CH 26.8; CHCM 31.2; Eosinophils % (A) 0 %; HCT 42.2 % (34.0-46.0); HDW 2.28; HGB 13.1 gm/dL (11.4-16.0); Hypochromasia Slight; Luc # (Auto) 0.06; Luc % (Auto) 1; Lymphocytes # (A) 0.8 k/uL (1.0-4.8); Lymphocytes % (A) 6 %; MCH 26.7 pg (25.0-35.0); MCV 86.2 fL (80.0-100.0); Monocytes # (A) 0.3 k/uL (0-1.0); Monocytes % (A) 2 %; Neutrophils # (A) 11.9 k/uL (1.3-7.7); Neutrophils % (A) 91 %; RDW 14.7 % (11.5-15.5); WBC (Perox) 13.58
[2016-04-26 09:01] LABS: ALT 31 U/L (9-52); AST 27 U/L (14-36); Alkaline Phosphatase 92 U/L (38-126); Anion Gap 15 mmol/L; Blood Urea Nitrogen 21 mg/dL (7-17); Calcium 9.8 mg/dL (8.4-10.2); Carbon Dioxide 25 mmol/L (22-30); Chloride 104 mmol/L (98-107); Glucose 141 mg/dL (74-99); Non-African American GFR(MDRD) 59 (>60 ml/min/1.73 sqM); Potassium 4.9 mmol/L (3.5-5.1); Sodium 144 mmol/L (137-145); Total Bilirubin 0.5 mg/dL (0.2-1.3); Total Protein 7.5 g/dL (6.3-8.2)
[2016-04-26] MEDS: levETIRAcetam 500 MG TAB PO SCH ×2 (10:55→20:45)
[2016-04-26] MEDS: SENNOSIDES 8.6 MG TAB PO SCH ×2 (10:55→20:45)
--- NOTE | 2016-04-26 12:04 | P.PN ---
Subjective Principal diagnosis: Patient is a pleasant 75-year-old female who is being followed by the neurology service for altered mental status. Patient has history of hip arthroplasty and was in rehab when she suffered a fall. Patient suffered a right temporal hematoma. Patient was placed on Keppra and Depakote prophylactically for seizures. Patient decreased mentation and instability may be medication related. Depakote is being weaned. Keppra is being continued for now. Computed tomography scan on admission did show a decrease in right temporal hematoma with surrounding edema and mass effect. Patient was started on IV Decadron to help decrease edema. No midline shift or hydrocephalus is seen. Patient continues to be confused and combative. At the time of my evaluation, patient is resting comfortably in bed and appears to be in no acute distress. Objective - Vital Signs Vital signs: Vital Signs Temp 97.8 F 04/26/16 07:00 Pulse 89 04/26/16 07:00 Resp 18 04/26/16 07:00 BP 138/81 04/26/16 07:00 Pulse Ox 94 L 04/26/16 07:00 Intake & Output 04/25/16 04/26/16 04/26/16 18:59 06:59 18:59 Intake Total 50 Balance 50 Intake: Oral 50 Other: Voiding Method Diaper Diaper Incontinent Incontinent # Voids 4 1 # Bowel Movements 0 0 # Emeses 0 - Exam PHYSICAL EXAM: GENERAL APPEARANCE: Patient is a well-developed, female who appears to be in no acute distress. HEENT: Normocephalic, atraumatic, no facial asymmetry is seen. Neck is supple with no masses felt. CARDIOVASCULAR: Regular rate and rhythm. ABDOMEN: Nontender, nondistended. EXTREMITIES: Show no edema or clubbing. NEUROLOGICAL EXAM: Patient is awake, alert, and oriented 2. Patient could not tell me the year. Patient is following simple commands. Patient appears less combative today. Speech is mildly dysarthric. Language is normal. Strength is full in all 4 extremities. Sensory exam is normal to light touch in all 4 extremities. No facial asymmetry is seen on cranial nerve testing. No tremors or seizure-like activity is seen. - Labs CBC & Chem 7: 04/26/16 07:53 04/26/16 07:53 Labs: Abnormal Lab Results - Last 24 Hours (Table) 04/26/16 04/26/16 Range/Units 07:53 07:53 WBC 13.0 H (3.8-10.6) k/uL Neutrophils # 11.9 H (1.3-7.7) k/uL Lymphocytes # 0.8 L (1.0-4.8) k/uL BUN 21 H (7-17) mg/dL Glucose 141 H (74-99) mg/dL Assessment and Plan (1) Intracranial hemorrhage Status: Acute (2) Multiple falls Status: Acute (3) Abrasions of multiple sites Status: Acute (4) Altered mental status Status: Acute Plan: Recommendation: Patient's mental status is slowly improving. Patient is less combative but remains confused. Continue IV Decadron for mass effect from prior left temporal hematoma. Depakote is being weaned off slowly. I will continue Keppra for now. Both Depakote and Keppra levels were within normal limits prior to weaning Depakote. EEG to be done if patient able to tolerate. Due to patient's confusion, safety precautions need to be in place. Continue medical management for her leukocytosis. Continue neurological checks. I will update a CT of the brain in a day or so. I will continue to follow with you. Further recommendations to follow. I performed an examination of the patient and discussed the management with the TABLE GAMES DEALER. I have reviewed the TABLE GAMES DEALER notes and agree with the findings and plan of care.
[2016-04-26] MEDS: LORazepam 2 MG/ML SYRINGE IV PRN ×2 (16:00→20:43)
--- NOTE | 2016-04-26 16:52 | P.PN ---
Subjective Principal diagnosis: Mental status changes Patient is somnolent, confused, occasionally combative Patient is followed by neurology and psychiatry, no significant change since yesterday Medications including Seroquel, Ativan, and Keppra are being adjusted Patient has minimal oral intake Objective - Vital Signs Vital signs: Vital Signs Temp 97.8 F 04/26/16 15:00 Pulse 62 04/26/16 15:00 Resp 18 04/26/16 15:00 BP 135/69 04/26/16 15:00 Pulse Ox 99 04/26/16 15:00 Intake & Output 04/25/16 04/26/16 04/26/16 18:59 06:59 18:59 Intake Total 50 200 Balance 50 200 Intake: Oral 50 200 Other: Voiding Method Diaper Diaper Diaper Incontinent Incontinent Incontinent # Voids 4 1 3 # Bowel Movements 0 0 0 # Emeses 0 - Exam HEENT head normocephalic and atraumatic Neck is supple no JVD no goiter no lymphadenopathy Chest is clear to auscultation no wheezing Cardiac exam reveals regular heart sounds no murmurs Abdomen is soft nontender no organomegaly Extremity exam reveals no edema no cyanosis or clubbing Neurological examination patient is somnolent combative confused moving all 4 extremities spontaneously not cooperating with exam not answering any questions. - Labs CBC & Chem 7: 04/26/16 07:53 04/26/16 07:53 Labs: Abnormal Lab Results - Last 24 Hours (Table) 04/26/16 04/26/16 Range/Units 07:53 07:53 WBC 13.0 H (3.8-10.6) k/uL Neutrophils # 11.9 H (1.3-7.7) k/uL Lymphocytes # 0.8 L (1.0-4.8) k/uL BUN 21 H (7-17) mg/dL Glucose 141 H (74-99) mg/dL Assessment and Plan Plan: 1. Altered mental status changes: Evaluated by neurology. This is multifactorial possibly medication induced by the Depakote or also mass effect from the right temporal hematoma/hemorrhage. Neurology has added dexamethasone. Also they're working on weaning patient off of Depakote. Patient still having significant confusion and Ativan is being given as needed. We'll increase dose to 1 mg every 4 hours as needed. We'll await further neurology recommendations. 2. Multiple falls: With computed tomography scan of the brain showing interval decrease in the right temporal hemorrhage/hematoma with surrounding edema. Also diffuse atrophy and extensive small vessel ischemic change. She had a computed tomography scan of the cervical spine multilevel degenerative disc disease no further compression deformity. Consult physical therapy. Continue with pain medications. Urinalysis negative. Chest x-ray does show worsening left infiltrate versus atelectasis. Patient has not been coughing. Incentive spirometer ordered. 2. Left elbow swelling with stage II ulceration and possible bursitis. X-ray of elbow is negative for any fractures. Continue Keflex 3. Multiple leg and arm lacerations with scabbing. Continue with Keflex. 4. History of right temporal hemorrhage earlier in April requiring a transfer to [facility]. Patient was also started on seizure medications for prevention of seizures. Per family there have been no active seizures. 5. Hypothyroidism resume Synthroid 6. Leukocytosis: Repeat labs in a.m. Possibly related to atelectasis as well as her multiple skin wounds. White count has gone up to 13.5. And this is likely due to the steroids. Continue to monitor.
[2016-04-26] MEDS: DIVALPROEX SPRINKLE 125 MG CAP.SPRINK PO SCH (17:55)
--- NOTE | 2016-04-26 18:01 | CONS ---
DATE OF CONSULTATION: 04/26/2016 REASON FOR CONSULTATION: Agitation. As the patient is very confused and not able to participate in clinical interview, so most of my information was from nursing staff and from her medical record. HISTORY OF PRESENT ILLNESS: Patient is a 75-year-old female who was able to function on her own up to 2015. According to the family, patient had a fall at [facility] and she did injure her hip. She underwent hip arthroplasty and was transferred to physical rehab. Patient had multiple falls in the rehab including a recent fall which resulted to right temperature hematoma. Please see complete consultation by Neurologist. Patient retired as psychiatric nurse practitioner and she was living with her brother up to [place]. Regarding her past medical history: Scoliosis, thyroid problem, multiple fall and recent hemorrhage in the right temporal lobe. PAST PSYCHIATRIC HISTORY: She just had orthopedic surgery on her hip at [facility]. Her home medication include: 1. Tylenol p.r.n. 2. Lipitor 40 mg daily. 3. Keflex 500 every 6 hours. 4. Depakote 125 twice a day. 5. Aurora 1 tablet every 4 hours p.r.n. 6. Ativan 0.5 every 4 hours p.r.n. 7. Synthroid 75 mcg. 8. Prilosec. 9. Senokot. 10. Keppra 1000 mg every 12 hour. 11. Seroquel 75 mg at bedtime. ALLERGIES: There are drug allergies. FAMILY PSYCHIATRIC HISTORY: Unknown. SOCIAL HISTORY: As I mentioned she was living with her brother. MENTAL EXAM: Patient was awake, she was reciting the rosary and praying. She was trying to get out of her bed. She is very confused. According to the sitter, she does not eat. ASSESSMENT AND PLAN: Encephalopathy due to intracranial hemorrhage. RECOMMENDATION: Currently patient is not able to participate in any mental status examination. Patient has been declining for the last 6-7 weeks. I would avoid any pain medication. Also minimize the use of any benzodiazepine. I will start the patient on Seroquel 25 mg every 6 hours around the clock and I will give her low dose of Premarin at bedtime to improve her appetite. I will continue to follow with you. I will arrange meeting with her brother to discuss patient's condition and the treatment plan.
[2016-04-26] MEDS: ATORVASTATIN 40 MG TAB PO SCH (20:45)
[2016-04-26] MEDS: PANTOPRAZOLE 40 MG TABLET PO SCH (20:45)
[2016-04-26] MEDS: LEVOTHYROXINE 88 MCG TAB PO SCH (20:45)
[2016-04-26] MEDS: MIRTAZAPINE 15 MG TAB PO SCH (20:45)
[2016-04-27] MEDS: LORazepam 2 MG/ML SYRINGE IV PRN ×2 (03:26→16:53)
[2016-04-27] MEDS: DEXAMETHASONE SOD PHOSPHATE 4 MG/ML 1 ML VIAL IV SCH (06:19)
[2016-04-27 08:43] LABS: Basophils % (A) 0 %; CH 27.4; CHCM 32.1; Eosinophils # (A) 0.1 k/uL (0-0.7); Eosinophils % (A) 0 %; HCT 41.4 % (34.0-46.0); HDW 2.35; HGB 13.1 gm/dL (11.4-16.0); Luc % (Auto) 1; Lymphocytes # (A) 0.9 k/uL (1.0-4.8); Lymphocytes % (A) 5 %; MCHC 31.5 g/dL (31.0-37.0); MCV 85.8 fL (80.0-100.0); Mean Platelet Volume 7.5; Monocytes # (A) 0.5 k/uL (0-1.0); Monocytes % (A) 3 %; Neutrophils # (A) 15.5 k/uL (1.3-7.7); Neutrophils % (A) 90 %; RBC 4.83 m/uL (3.80-5.40); RDW 15.2 % (11.5-15.5); WBC 17.2 k/uL (3.8-10.6); WBC (Perox) 17.93
--- NOTE | 2016-04-27 08:52 | P.PN ---
Subjective 75-year-old being seen on rounds sitter is at the bedside. Patient has been seen by mental health service yesterday. Recommendations were noted and appreciated and reviewed. Patient's overall health has been declining for the last several months. Patient reportedly is at a ECF facility and has had frequent falls at the facility. The mental health recommended starting patient on Seroquel 25 mg every 6 hours [id number]. And avoid using benzodiazepines. Currently the patient will open eyes to verbal stimuli but is not able to converse participate in the interview. Nursing reports patient does have episodes with attempts to climb out of the bed unassisted currently patients being followed by psychiatric and neurology service Objective - Vital Signs Vital signs: Vital Signs Temp 98.1 F 04/27/16 07:00 Pulse 75 04/27/16 07:00 Resp 22 04/27/16 07:00 BP 133/90 04/27/16 07:00 Pulse Ox 99 04/27/16 07:00 Intake & Output 04/26/16 04/27/16 04/27/16 18:59 06:59 18:59 Intake Total 200 Balance 200 Intake: Oral 200 Other: Voiding Method Diaper Diaper Incontinent Incontinent # Voids 3 2 # Bowel Movements 0 - Exam Physical exam 75-year-old female opens eyes to verbal stimuli somnolent Lungs essentially clear on room air no cough noted Heart S1-S2 audible regular no murmur Abdomen soft nontender not distended incontinent urine Extremities no edema noted multiple skin abrasions noted to the lower extremities randomly moves extremities but does not follow simple commands - Labs CBC & Chem 7: 04/26/16 07:53 04/26/16 07:53 Labs: Abnormal Lab Results - Last 24 Hours (Table) 04/26/16 04/26/16 Range/Units 07:53 07:53 WBC 13.0 H (3.8-10.6) k/uL Neutrophils # 11.9 H (1.3-7.7) k/uL Lymphocytes # 0.8 L (1.0-4.8) k/uL BUN 21 H (7-17) mg/dL Glucose 141 H (74-99) mg/dL Assessment and Plan Plan: Impression Acute on chronic encephalopathy multifactorial hospital medication induced with mass effect from the right temporal hematoma Multiple falls with a CAT scan of the brain showing interval decrease in the right temporal hemorrhage hematoma with surrounding edema CAT scan of the brain shows diffuse atrophy and extensive small vessel ischemic changes Chest x-ray shows worsening left infiltrate versus atelectasis Multiple leg and arm abrasions lacerations with scabbing cyst likely due to frequent falls Left elbow swelling with stage II ulcerative area Hypothyroid on supplements Leukocytosis suspect reactive due to steroids History of a right temporal hemorrhage April 2015 requiring a transfer to [facility] seizure medication for prevention of seizures with no active seizures Chronic debility Plan Continue recommendations by the mental health service defer to Continue Keflex 500 mg every 8 Continue sitter at bedtime Continue DVT and GI prophylaxis Continue the Seroquel 25 3 times a day scheduled per sex recommendations Continue Keppra 1 g every 12 as ordered Continue IV Decadron 4 mg every 6 monitor response Further recommendations pending The above dictated assessment and findings were discussed with Dr. Pablito Guzman and the plan of care have been dictated as directed. Liane Rizvi nurse practitioner acting as a scribe for dr barrios
[2016-04-27 08:55] LABS: ALT 34 U/L (9-52); AST 22 U/L (14-36); Alkaline Phosphatase 85 U/L (38-126); Anion Gap 10 mmol/L; Blood Urea Nitrogen 27 mg/dL (7-17); Calcium 9.7 mg/dL (8.4-10.2); Carbon Dioxide 28 mmol/L (22-30); Chloride 107 mmol/L (98-107); Glucose 101 mg/dL (74-99); Non-African American GFR(MDRD) 55 (>60 ml/min/1.73 sqM); Potassium 5.1 mmol/L (3.5-5.1); Sodium 145 mmol/L (137-145); Total Bilirubin 0.4 mg/dL (0.2-1.3); Total Protein 7.2 g/dL (6.3-8.2)
[2016-04-27] MEDS: SENNOSIDES 8.6 MG TAB PO SCH ×2 (09:23→22:52)
[2016-04-27] MEDS: levETIRAcetam 500 MG TAB PO SCH ×2 (09:23→22:49)
[2016-04-27] MEDS: CEPHALEXIN 500 MG CAP PO SCH ×2 (09:24→18:09)
[2016-04-27] MEDS: QUEtiapine 25 MG TAB PO SCH (09:24)
[2016-04-27] MEDS ORDERED: QUEtiapine 25 MG TAB PO PRN (10:58)
--- NOTE | 2016-04-27 11:09 | P.PN ---
Progress Note - Text PATIENT WAS SEEN FOR PSYCHIATRIC FOLLOW_UP: As patient was sleeping ,I discussed case with her sitter and her RN:patient had trouble sleeping last night and did require PRN Ativan ,this morning she just ate pudding ,has been more sedated this morning ,able to wake up but no communication PLAN: Start Seroquel XR 50 mg to restore her sleep and change regular low dose of Seroquel to PRN ,will continue to follow-up
--- NOTE | 2016-04-27 11:54 | P.PN ---
Subjective Principal diagnosis: Patient is a pleasant 75-year-old female who is being followed by the neurology service for altered mental status. Patient has history of hip arthroplasty and was in rehab when she suffered a fall. Patient suffered a right temporal hematoma. Patient was placed on Keppra and Depakote prophylactically for seizures. Patient and weaned off Depakote. Keppra is continued for now. EEG was done and due to technical difficulty with the results are pending. Computed tomography scan on admission did show a decrease in right temporal hematoma with surrounding edema and mass effect. Patient was started on IV Decadron to help decrease edema. No midline shift or hydrocephalus is seen. Patient continues to be confused and combative although slightly improved. At the time of my evaluation, patient is resting comfortably in bed and appears to be in no acute distress. Objective - Vital Signs Vital signs: Vital Signs Temp 98.1 F 04/27/16 07:00 Pulse 75 04/27/16 07:00 Resp 22 04/27/16 07:00 BP 133/90 04/27/16 07:00 Pulse Ox 99 04/27/16 07:00 Intake & Output 04/26/16 04/27/16 04/27/16 18:59 06:59 18:59 Intake Total 200 Balance 200 Intake: Oral 200 Other: Voiding Method Diaper Diaper Incontinent Incontinent # Voids 3 2 # Bowel Movements 0 - Exam PHYSICAL EXAM: GENERAL APPEARANCE: Patient is a well-developed, female who appears to be in no acute distress. HEENT: Normocephalic, atraumatic, no facial asymmetry is seen. Neck is supple with no masses felt. CARDIOVASCULAR: Regular rate and rhythm. ABDOMEN: Nontender, nondistended. EXTREMITIES: Show no edema or clubbing. NEUROLOGICAL EXAM: Patient is lethargic and not easily aroused. Staff tells me patient was awake most of the night. No obvious facial asymmetry is noted patient moves all 4 extremities purposefully no lateralizing weakness is seen. No tremors or seizure-like activity is noted. - Labs CBC & Chem 7: 04/27/16 08:24 04/27/16 08:24 Labs: Abnormal Lab Results - Last 24 Hours (Table) 04/27/16 04/27/16 Range/Units 08:24 08:24 WBC 17.2 H (3.8-10.6) k/uL Neutrophils # 15.5 H (1.3-7.7) k/uL Lymphocytes # 0.9 L (1.0-4.8) k/uL BUN 27 H (7-17) mg/dL Glucose 101 H (74-99) mg/dL Assessment and Plan (1) Intracranial hemorrhage Status: Acute (2) Multiple falls Status: Acute (3) Abrasions of multiple sites Status: Acute (4) Altered mental status Status: Acute Plan: Recommendation: Patient's mental status minimally improved. Patient is less combative but remains confused. Continue IV Decadron for mass effect from prior right temporal hematoma. I will change her to oral steroid and slowly wean her off. Depakote has been weaned off. I will continue Keppra for now. EEG was done but due to technical difficulties has not been read yet. Continue neurological checks. I will update a CT of the brain in the a.m. Given her age and findings, prognosis would be guarded regarding a meaningful neurological recovery. She can follow up in the clinic for better prognostic indicator in 3-4 weeks. I will continue to follow with you. Further recommendations to follow. I performed an examination of the patient and discussed the management with the GLASS ROBOT OPERATOR. I have reviewed the GLASS ROBOT OPERATOR notes and agree with the findings and plan of care.
[2016-04-27] MEDS: DEXAMETHASONE 4 MG TAB PO SCH (18:46)
[2016-04-27] MEDS: ATORVASTATIN 40 MG TAB PO SCH (22:51)
[2016-04-27] MEDS: PANTOPRAZOLE 40 MG TABLET PO SCH (22:52)
[2016-04-27] MEDS: MIRTAZAPINE 15 MG TAB PO SCH (22:52)
[2016-04-27] MEDS: LEVOTHYROXINE 88 MCG TAB PO SCH (22:52)
[2016-04-28] MEDS: CEPHALEXIN 500 MG CAP PO SCH ×2 (00:02→09:46)
[2016-04-28] MEDS: DEXAMETHASONE 4 MG TAB PO SCH ×2 (00:03→09:46)
[2016-04-28] MEDS: LORazepam 2 MG/ML SYRINGE IV PRN ×2 (00:12→14:02)
--- NOTE | 2016-04-28 08:24 | CT ---
EXAMINATION TYPE: CT brain wo con DATE OF EXAM: 04/28/2016 8:11 AM COMPARISON: 04/23/2016 INDICATION: Decreased mental status DLP: 1121 mGycm, Automated exposure control for dose reduction was used. CONTRAST: None CT of the brain is performed utilizing 3 mm thick sections through the posterior fossa and 3 mm thick sections through the remaining calvarium. Study is performed within 24 hours of arrival to the hosp ital. There is a 0.9 x 1.9 cm area of hyperintensity within the proximal right temporal lobe. This has surr ounding edema. This is stable from the comparison study. There is a 0.8 x 2.7 cm linear area of increased density within the medial left occipital lobe on thi s is a new finding can be an acute hemorrhage. There is a 1.0 cm area of increased density adjacent t o the right frontal calvarium a cortical hemorrhage at this area should be considered. This is a new finding from comparison. No mass effect or significant edema is adjacent to the new hemorrhages. Quad rigeminal plate and ambient cistern are patent. No hydrocephalus is evident. No mass lesion is evident. No acute infarcts are evident. Periventricular white matter hypodensity is present likely on the basi s of microvascular ischemic change. Ventricles and sulci are prominent for the patient age. Paranasal sinuses and mastoid air cells within the [id number] are clear. IMPRESSIONS: 1. 2 new intraparenchymal hemorrhages within the cortical right frontal lobe and within the intrapa renchymal left occipital lobe. 2. Stable proximal right temporal lobe hemorrhage with surrounding edema. 3. Chronic appearing periventricular white matter ischemic changes. 4. Report was called to Sofi, the patient's nurse by Dr. Worley by telephone 0895 hours 04/28/2016
[2016-04-28 08:34] VITALS: PULSE 91; RESP 16; TEMP 97.1
[2016-04-28] MEDS ORDERED: ENALAPRILAT 1.25 MG/ML 1 ML VIAL IVP PRN (08:44)
[2016-04-28 09:05] LABS: Basophils # (A) 0.1 k/uL (0-0.2); Basophils % (A) 0 %; CH 27.5; Eosinophils # (A) 0.1 k/uL (0-0.7); Eosinophils % (A) 0 %; HCT 43.5 % (34.0-46.0); HDW 2.32; HGB 13.7 gm/dL (11.4-16.0); Luc # (Auto) 0.16; Luc % (Auto) 1; Lymphocytes # (A) 1.4 k/uL (1.0-4.8); Lymphocytes % (A) 8 %; MCH 27.3 pg (25.0-35.0); MCHC 31.5 g/dL (31.0-37.0); MCV 86.6 fL (80.0-100.0); Mean Platelet Volume 7.7; Monocytes # (A) 0.7 k/uL (0-1.0); Monocytes % (A) 4 %; Neutrophils % (A) 87 %; RBC 5.02 m/uL (3.80-5.40); RDW 15.3 % (11.5-15.5); WBC 17.4 k/uL (3.8-10.6); WBC (Perox) 18.45
[2016-04-28] MEDS: SENNOSIDES 8.6 MG TAB PO SCH (09:46)
[2016-04-28] MEDS: levETIRAcetam 500 MG TAB PO SCH (09:46)
[2016-04-28] MEDS ORDERED: amLODIPine 5 MG TAB PO SCH (10:15)
--- NOTE | 2016-04-28 11:48 | CDI ---
In responding to this query, please exercise your independent professional judgment. The [facility] Coding Staff and Clinical Documentation Specialists appreciate your assistance in clarifying documentation, maintaining compliance with coding guidelines, accurately documenting patients condition and capturing severity of illness. The fact that a question is asked does not imply that any particular answer is desired or expected. Communication forms are a method of clarifying documentation and are not made part of the Legal Health Record. Thank you in advance for your clarification. Last Revision, May 2015 Kiesha Patel [address] [place] [address] Documentation Clarification Form Date: 04/28/2016 11:14:00 AM From: Mila Dudley Admit Date: 04/24/2016 8:29:00 PM Patient Name: Julia De Jesus Visit Number: [id number] Discharge Date: Dr. Kay Kenney/Joan Del Angel PA-C Altered mental status was documented in the H&P and progress notes. Patient history/risk factors: Dementia, Thyroid disorder, Scoliosis Clinical Indicators: Present for fall, seen for evaluation. Fell and hit head. She is alert and oriented x1-2 Vital Signs: 169/108 77 20 97.3 93 % Ra Labs: HGB 10.6, HCT 33.8 CT Brain: Persistent right-sided temporal hemorrhage that is improving form previous with surrounding edema. Treatment: Wean Depakote Seroquel PO Dexamethasone IV (change PO) Neurological assessment per protocol Neurology consult: Altered mental status is most likely multifactorial including medication related due to Depakote and also result of mass effect from prior left temporal hematoma. In your professional opinion, please further clarify the etiology of the altered mental status, if known. Encephalopathy (specify Type and Underlying Medical Illness Metabolic Encephalopathy Toxic Encephalopathy) Other (specify) Delirium (specify cause) Dementia (if know, specify Type and if with/without Behavioral Disturbance) Other condition (please specify) Unable to determine Please document in your progress notes and discharge summary in order to capture severity of illness and risk of mortality. Include clinical findings that support your diagnosis. FYI: Press F11 to launch patient chart. Place X here if this finding has no clinical significance, is not applicable or if you are not able to provide any additional documentation. MALKA
[2016-04-28] MEDS: HYDROcodone/APAP 5-325MG 1 EACH TAB PO PRN (13:16)
--- NOTE | 2016-04-28 13:32 | P.DS ---
Providers Date of admission: 04/24/16 20:29 Expected date of discharge: 04/28/16 Attending physician: Kay Kenney Consults: 04/25/16 13:54 Consult Physician Routine Consulting Provider: Duran Ray Consult Reason/Comments: confusion, agitation Do you want consulting provider notified?: Yes Dr. Kwon Primary care physician: Macey Banerjee [facility] Course: Discharge summary 1. Altered mental status changes: Secondary to a toxic and metabolic encephalopathy. Due to the Depakote and mass effect from the right temporal hematoma. Depakote has been weaned off. Evaluated by neurology. This is multifactorial possibly medication induced by the Depakote or also mass effect from the right temporal hematoma/hemorrhage. Neurology has added dexamethasone. Also they're working on weaning patient off of Depakote. Patient also evaluated by psychiatry they had adjusted her Seroquel dose. Patient remains confused. A repeat computed tomography scan of the brain completed this morning shows 2 new intraparenchymal hemorrhages within the cortical right frontal lobe and within the intraparenchymal left occipital lobe. Patient will be transferred to [facility]. 2. Multiple falls: With computed tomography scan of the brain showing interval decrease in the right temporal hemorrhage/hematoma with surrounding edema. Also diffuse atrophy and extensive small vessel ischemic change. She had a computed tomography scan of the cervical spine multilevel degenerative disc disease no further compression deformity. Consult physical therapy. Continue with pain medications. Urinalysis negative. Chest x-ray does show worsening left infiltrate versus atelectasis. Patient has not been coughing. Incentive spirometer ordered. 2. Left elbow swelling with stage II ulceration and possible bursitis. X-ray of elbow is negative for any fractures. Continue Keflex 3. Multiple leg and arm lacerations with scabbing. Continue with Keflex. 4. History of right temporal hemorrhage earlier in April requiring a transfer to [facility]. Patient was also started on seizure medications for prevention of seizures. Per family there have been no active seizures. 5. Hypothyroidism resume Synthroid 6. Leukocytosis: Repeat labs in a.m. Possibly related to atelectasis as well as her multiple skin wounds. White count has gone up to 13.5. And this is likely due to the steroids. Continue to monitor. Now resolved Hospital course This is a 75-year-old female, patient of Dr. Banerjee. She has a known past medical history of hypothyroidism, chronic kidney disease and intracranial brain bleed. Patient has a history of multiple falls in the past. She was transferred earlier in April [facility] for intracranial brain bleed. She had currently been residing at [facility] for rehabilitation. Please note that I'm unable to obtain history from patient. History was obtained from nursing staff and chart. It appears the patient was sitting in her wheelchair in the wheelchair flipped backwards she had her head on the metal heater. She was awake and alert afterwards and the nurse evaluating her and it had reported that there is no change in her mental status. However she was agitated IV did give her some Ativan. Family member showed up and wanted her to be evaluated in the emergency room for her fall. Therefore patient was brought into the emergency room. She's been admitted to the observation floor. Patient was diagnosed with a toxic and metabolic encephalopathy. Neurology evaluated patient and felt that her mentation changes were related to possibly the Depakote and mass effect from the right temporal hematoma with edema. She was started on IV Decadron. And they weaned her off of the Depakote. Patient is still confused. Therefore a computed tomography scan of the brain was repeated this morning 3 results of the computed tomography scan as stated above showing 2 new intraparenchymal hemorrhages. Neurology was notified. They did feel that these new hemorrhages may have been related to her increase in blood pressures. Norvasc was added over the weekend. IV Vasotec was given this morning. Therefore, before was contacted for transfer to a tertiary care center in regards to these new brain hemorrhages. Patient is still confused. The case was talked with the brother and he is agreeable that patient be transferred. Dr. Kenney discussed case with [facility] physician and they're agreeable to accept the patient. Patient is stable for transfer to [facility]. Also note that she was seen by psychiatry in regards to her confusion and they had adjusted the Seroquel dose. Patient Condition at Discharge: Stable Plan - Discharge Summary Discharge Medication List Acetaminophen [Tylenol] 650 mg PO Q4H PRN 04/23/16 [History] Atorvastatin [Lipitor] 40 mg PO HS 04/23/16 [History] Cephalexin [Keflex] 500 mg PO Q6HR 04/23/16 [History] Divalproex Sodium [Depakote] 125 mg PO BID@0800,1600 04/23/16 [History] HYDROcodone/APAP 5-325MG [Haswell 5-325] 1 tab PO Q4HR PRN 04/23/16 [History] LORazepam [Ativan] 0.5 mg PO Q4H PRN 04/23/16 [History] Levothyroxine Sodium [Synthroid] 75 mcg PO HS 04/23/16 [History] Omeprazole 20 mg PO HS 04/23/16 [History] Sennosides [Senokot] 8.6 mg PO BID 04/23/16 [History] levETIRAcetam 1,000 mg PO Q12HR 04/23/16 [History] Dexamethasone [Hexadrol] 4 mg PO TID tab 04/28/16 [Rx] Mirtazapine [Remeron] 15 mg PO HS tab 04/28/16 [Rx] QUEtiapine XR [SEROquel XR] 50 mg PO DAILY@1900 tab.er.24h 04/28/16 [Rx] QUEtiapine [SEROquel] 25 mg PO BID PRN #0 tab 04/28/16 [Rx] amLODIPine [Norvasc] 5 mg PO DAILY tab 04/28/16 [Rx] Follow up Appointment(s)/Referral(s): Macey Banerjee MD [Primary Care Provider] - 3 Days Patient Instructions/Handouts: Fall Prevention for Older Adults (GEN) Activity/Diet/Wound Care/Special Instructions: Soft, Cardiac diet. Transfer patient to [facility] Discharge Disposition: OTHER INSTITUTION NOT DEFINED
[2016-04-28 16:08] VITALS: BP 108/57
--- NOTE | 2016-04-28 23:27 | EEG ---
DATE OF SERVICE: 04/26/2016 REASON FOR TESTING: Altered mental status. DESCRIPTION OF THE PROCEDURE: This EEG was performed using a 21-channel digital electroencephalograph, following international 10-20 system. DESCRIPTION OF THE RECORDING: From the beginning of the tracing, and with the patient's eyes closed, the background rhythm was mostly consisting of 5 to 6 Hz theta frequency in the posterior occipital leads. Occasional slowing into the delta range is seen. No obvious asymmetry is noticed. Photic stimulation was performed with no driving response seen. No pathological waves were elicited. Hyperventilation was not performed. The patient does reach stage II of sleep during the tracing and occasional sleep spindles are seen. No epileptiform discharges were seen. Her EKG lead showed a regular rate and rhythm. INTERPRETATION: This asleep and awake EEG is abnormal due to the presence of generalized slowing of the background rhythm, mostly in the theta range and occasionally into the delta range. This is consistent with moderate to severe encephalopathy. No epileptiform discharges were seen. The absence of epileptiform discharges does not rule out the diagnosis of epilepsy; therefore clinical correlation is recommended.
== END 2016-04-28 15:53 | disposition short-term general hospital (02) | DRG 85 ==
LOC: EC 23:09 → 3OBS 04-24 01:00 → 4MS4W 04-24 17:57 → OBSVTOIN 04-24 20:29
PROVIDERS: ADMIT Internal Medicine; ATTEND Internal Medicine
DX: S06.360A Traumatic hemorrhage of cerebrum, unspecified, without loss of consciousness, initial encounter (principal); G92 Toxic encephalopathy; G93.6 Cerebral edema; G93.41 Metabolic encephalopathy; J98.11 Atelectasis; I61.9 Nontraumatic intracerebral hemorrhage, unspecified; E03.9 Hypothyroidism, unspecified; F03.90 Unspecified dementia, unspecified severity, without behavioral disturbance, psychotic disturbance, mood disturbance, and anxiety; M41.9 Scoliosis, unspecified; M50.30 Other cervical disc degeneration, unspecified cervical region; N18.9 Chronic kidney disease, unspecified; R29.6 Repeated falls; T38.0X5A Adverse effect of glucocorticoids and synthetic analogues, initial encounter; R45.1 Restlessness and agitation; R32 Unspecified urinary incontinence; T42.6X5A Adverse effect of other antiepileptic and sedative-hypnotic drugs, initial encounter; L98.499 Non-pressure chronic ulcer of skin of other sites with unspecified severity; T14.8 Other injury of unspecified body region; Z79.899 Other long term (current) drug therapy; Z87.891 Personal history of nicotine dependence; Z91.81 History of falling; Z96.649 Presence of unspecified artificial hip joint; Y92.009 Unspecified place in unspecified non-institutional (private) residence as the place of occurrence of the external cause
CPT/HCPCS: 36415; 70450; 71010; 72125; 72170; 80053; 80164; 80177; 81003; 84439; 84443; 85025; 85610; 85730; 87086; 93005; 95819; 96374; 96375; 96376; 99285